=== PATIENT | male | born 1955 | race Hispanic/Latino ===

== ENCOUNTER → 2021-02-11 | Outpatient (CLI) | payer OTHER, MEDICARE ==
[~2021-02-11] MED LIST: IOHEXOL-350 50ML VIAL IV ONE
== END | disposition home or self-care (01) ==
LOC: RAH 09:33
PROVIDERS: ATTEND Internal Medicine Cardiovascular Disease
DX: I70.0 Atherosclerosis of aorta (principal); I73.9 Peripheral vascular disease, unspecified; I70.8 Atherosclerosis of other arteries; K76.0 Fatty (change of) liver, not elsewhere classified
CPT/HCPCS: 75635; Q9967 ×3